=== PATIENT | male | born 1995 | race Caucasian/White ===

== ENCOUNTER 2016-06-18 15:37 | Emergency (ER) | payer BC ==
--- NOTE | 2016-06-18 16:26 | EDPHY ---
H & P Stated Complaint: left lower back pain post lifting weight session. Time Seen by Provider: 06/18/16 15:53 HPI/ROS: Chief complaint: Low back pain History of present illness: This is a 20-year-old male who presents to the emergency department for evaluation of low back pain. Patient reports the onset of symptoms 2 weeks ago after he was lifting weights, specifically doing a lift. States pain is all across low back but most intense on the left side. It does not radiate. It is worse with movement, better with rest. He has on occasion use Aleve which helps but he is not using it regularly. He denies other associated signs or symptoms including no direct trauma, no history of fevers, no paresthesias, no weakness or paralysis no bowel or bladder dysfunction. Review of systems: A 10 point review of systems was obtained and other than described above was negative - Personal History Current Tetanus/Diphtheria Vaccine: Yes Current Tetanus Diphtheria and Acellular Pertussis (TDAP): Yes - Medical/Surgical History Hx Asthma: Yes Hx Chronic Respiratory Disease: No Hx Diabetes: No Hx Cardiac Disease: No Hx Renal Disease: No Hx Cirrhosis: No Hx Alcoholism: No Hx HIV/AIDS: No Hx Splenectomy or Spleen Trauma: No Other PMH: Pmh:ADHD, Asthma. PSH:none - Social History Smoking Status: Never smoked Additional Social History: No history of IV drug abuse - Physical Exam Exam: General Appearance: Alert, nontoxic Eyes: PERRLA Respiratory: Lungs clear to auscultation bilaterally Cardiac: Regular rate and rhythm. Gastrointestinal: Bowel sounds normal. Abdomen soft, nondistended and nontender. No masses. Neurological: Alert and oriented x4. Strength and sensation intact and symmetrical. Negative straight leg bilaterally. Patellar and Achilles reflex is symmetrical. Ambulating well. Skin: No lesions consistent with trauma to the back. Musculoskeletal: Head is normocephalic, atraumatic. The cervical and thoracic spine are nontender to palpation. There is diffuse tenderness across the lumbar spine and paraspinal muscles bilaterally. No specific point tenderness, crepitus, bony deformity or step-off on palpation of the lumbar spine. Patient moving all extremities without difficulty. Constitutional: Initial Vital Signs Temperature (C) 36 C 06/18/16 15:41 Heart Rate 66 06/18/16 15:41 Respiratory Rate 16 06/18/16 15:41 Blood Pressure 131/64 H 04/11/17 15:41 O2 Sat (%) 96 06/18/16 15:41 O2 Delivery Mode Room Air Allergies/Adverse Reactions: No Known Allergies Allergy (Unverified 06/18/16 15:40) Home Medications: Medication Instructions Recorded Hydrocodone/APAP 5/325 [Koos[place]ia 1 tab PO Q6H #6 tab 06/18/16 5/325 (*)] Methylphenidate HCl [Concerta] 06/18/16 Medical Decision Making - Diagnostics Imaging: Imaging Impressions Lumbar Spine X-Ray 06/18/16 16:00 Impression: 1. Negative except for minimal disk height loss at L5-S1. 2. No no pars defect or compression fracture. ED Course/Re-evaluation: Patient seen under the supervision of my secondary supervising physician Dr. Trey Bowman. Patient presents to the emergency department for back pain. He is nontoxic. He has a nonfocal neurologic exam. X-ray does not show acute fracture. No evidence of neurologic compromise. I have not identified any red flag risk factors for severe causes of back pain. Patient will be discharged home. Home care is discussed. He is asked to follow up with a primary care doctor for recheck. Return precautions are given. Patient voiced understanding and agreement with plan. Differential Diagnosis: Included but not limited to sprain or strain, herniated intervertebral disc, bony fracture, unlikely spinal cord pathology including cauda equina syndrome Departure - Departure Disposition: Home, Routine, Self-Care Clinical Impression: Back pain Qualifiers: Back pain location: low back pain Chronicity: acute Back pain laterality: bilateral Sciatica presence: without sciatica Qualified Code(s): M54.5 - Low back pain Condition: Good Instructions: Low Back Strain (ED) Additional Instructions: Follow-up with a primary care doctor for recheck In regards to pain control see the following: Use ibuprofen 800 mg 3 times a day for the next 2-3 days for pain In addition You have been prescribed Kooskia for pain. Kooskia contains Tylenol, do not take extra Tylenol/acetaminophen/Apap with it. It is sedating. If symptoms worsen or new symptoms develop return to the emergency room for recheck Referrals: Waldemar Roberts DO [Doctor of Osteopathy] - As per Instructions Prescriptions: Hydrocodone/APAP 5/325 [Ko[place]ia 5/325 (*)] 1 tab PO Q6H #6 tab
[2016-06-18 16:43] VITALS: BP 120/62; PULSE 64; RESP 14; TEMP 97.5; O2SAT 97
== END 2016-06-18 16:43 | disposition home or self-care (01) ==
DX: S39.92XA Unspecified injury of lower back, initial encounter (principal); J45.909 Unspecified asthma, uncomplicated; X50.0XXA Overexertion from strenuous movement or load, initial encounter; Y99.8 Other external cause status; Y93.89 Activity, other specified

== ENCOUNTER 2016-07-06 16:08 | Emergency (ER) | payer BC ==
[2016-07-06 16:16] VITALS: RESP 16; TEMP 97.5
[2016-07-06] MEDS ORDERED: MECLIZINE HCL 25 MG TAB PO ONE (18:06)
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
[2016-07-06 19:05] VITALS: BP 102/69; PULSE 68; O2SAT 96
== END 2016-07-06 19:04 | disposition home or self-care (01) ==
DX: S09.90XA Unspecified injury of head, initial encounter (principal); J45.909 Unspecified asthma, uncomplicated; W22.8XXA Striking against or struck by other objects, initial encounter; Y92.89 Other specified places as the place of occurrence of the external cause; Y99.8 Other external cause status